=== PATIENT | male | born 1975 | race African-American/Black ===

== ENCOUNTER 2017-09-16 04:11 | Emergency (ER) | payer MEDICARE ==
[~2017-09-16] VITALS: Ht 175.3 cm; Wt 113.4 kg
[~2017-09-16 04:11] MED LIST: PHEN100C4 PO
--- NOTE | 2017-09-16 07:37 | NUR ---
41 Y/O MALE PLACED IN BED 10 C/O SUICIDAL IDEATIONS. PT BEING EVALUATED BY .
[2017-09-16] MEDS ORDERED: OLANZAPINE 5 MG/TAB.RAPDIS PO ONE (08:00)
[2017-09-16] MEDS ORDERED: OLANZAPINE 5 MG/TAB.RAPDIS ONE (08:04)
[2017-09-16 08:07] LABS: BASOPHILS % (AUTO) 0.3 % (0.0-2.0); EOSINOPHILS % (AUTO) 0.3 % (0.0-6.0); HEMATOCRIT 39 % (39-51); HEMOGLOBIN 12.9 g/dL (13.5-17.5); LYMPHOCYTES # (AUTO) 1.6 /CMM (0.8-4.8); LYMPHOCYTES % (AUTO) 20.8 % (20.0-44.0); MEAN CORPUSCULAR HEMOGLOBIN 26 PG (26.0-33.0); MEAN CORPUSCULAR HGB CONC 33 g/dl (31.0-36.0); MEAN CORPUSCULAR VOLUME 80 fL (80-96); MONOCYTES # (AUTO) 0.8 /CMM (0.1-1.30); MONOCYTES % (AUTO) 10.2 % (2.0-12.0); NEUTROPHILS # (AUTO) 5.3 /CMM (1.8-8.9); NEUTROPHILS % (AUTO) 68.4 % (43.0-81.0); PLATELET COUNT (AUTO) 358 /CMM (150-450); RDW COEFFICIENT OF VARIATION 15.3 (11.5-15.0); RED BLOOD CELL COUNT(AUTO) 4.89 MIL/uL (4.5-6.0); WHITE BLOOD COUNT (AUTO) 7.8 K/uL (4.3-11.0)
[2017-09-16 08:30] LABS: ALANINE AMINOTRANSFERASE 53 U/L (12-78); ALBUMIN 4.1 g/dL (3.4-5.0); ALKALINE PHOSPHATASE 80 U/L (46-116); ASPARTATE AMINOTRANSFERASE 38 U/L (15-37); BILIRUBIN,DIRECT 0.3 mg/dL (0.0-0.2); BILIRUBIN,TOTAL 1.2 mg/dL (0.2-1.0); CALCIUM, SERUM 9.3 mg/dL (8.5-10.1); CARBON DIOXIDE 27 mmol/L (21-32); CHLORIDE 103 mmol/L (98-107); CREATININE 1.1 mg/dL (0.6-1.3); GLUCOSE 96 mg/dL (74-106); POTASSIUM 3.3 mmol/L (3.5-5.1); SODIUM SERUM 140 mmol/L (136-145); TOTAL PROTEIN, SERUM 9.2 g/dL (6.4-8.2); UREA NITROGEN, BLOOD 17 mg/dL (7-18)
[2017-09-16 08:31] LABS: ACETAMINOPHEN 0 ug/ml (10-30); ALCOHOL, BLOOD < 3 mg/dL (0-0); SALICYLATE < 0.2 mg/dL (2.8-20.0)
--- NOTE | 2017-09-16 08:34 | NUR ---
Patient is resting comfortably in bed with eyes closed. Easily aroused. VSS
[2017-09-16 08:43] LABS: VALPROIC ACID < 3 ug/mL (50-100)
[2017-09-16 08:55] LABS: APPEARANCE,URINE CLEAR (CLEAR); BILIRUBIN,URINE 1+ (NEGATIVE); BLOOD, URINE TRACE-INTA Ery/uL (NEGATIVE); COLOR,URINE DARK YELLO (YELLOW); KETONES,URINE 1+ (NEGATIVE); LEUKOCYTE ESTERASE ,URINE NEGATIVE (NEGATIVE); NITRITE, URINE NEGATIVE (NEGATIVE); PH,URINE 5.5 (5.0-8.0); PROTEIN,URINE 1+ mg/dl (NEGATIVE); UGLUCOSE NEGATIVE (NEGATIVE)
[2017-09-16] MEDS ORDERED: POTASSIUM CHLORIDE 20 MEQ TAB.PRT.SR PO ONE ×2 (09:00→09:01)
[2017-09-16 09:18] LABS: BACTERIA,URINE FEW /HPF (None Seen)
--- NOTE | 2017-09-16 09:19 | NUR ---
BREAKFAST TRAY PROVIDED
[2017-09-16 09:20] LABS: SQUAMOUS EPITHELIAL CELL,UR FEW /HPF (None Seen); WBC,URINE 0-2 /HPF (0-3)
[2017-09-16 09:21] LABS: MUCUS,URINE Moderate /LPF (None Seen)
[2017-09-16 11:25] VITALS: BP 127/80
--- NOTE | 2017-09-16 11:28 | NUR ---
PT PROVIDED LIST OF RESOURCES TO GET HELP, MENTAL HELP, HOUSING.
--- NOTE | 2017-09-16 11:28 | NUR ---
Patient discharged to home in stable condition. Written and verbal after care instructions given. Patient verbalizes understanding of instruction.
== END 2017-09-16 11:27 | disposition home or self-care (01) ==
LOC: ER 04:15 → EDBD 04:15 → ER 11:27
DX: F20.9 Schizophrenia, unspecified (principal); R45.851 Suicidal ideations; R56.9 Unspecified convulsions; E11.9 Type 2 diabetes mellitus without complications; Z59.0 Homelessness
CPT/HCPCS: 36415; 80048; 80076; 80164; 80305; 80329; 81001; 85025; 99284; A4606; G0480 ×2; 81000-TC; Z7610

== ENCOUNTER 2019-04-15 02:10 | Emergency (ER) | payer MEDICAID, OTHER ==
[~2019-04-15] VITALS: Ht 177.8 cm; Wt 105.7 kg
--- NOTE | 2019-04-15 02:34 | NUR ---
IGOR. C/O "WAS TRYING TO CHECK INTO MENTAL HOSPITAL, +ETOH" -SOB NOTED. PT AOX2-3. VSS.
[2019-04-15] MEDS ORDERED: IV NS 0.9% 1,000 ML BAG IV ONE (03:00)
[2019-04-15 03:01] LABS: BASOPHILS # (AUTO) 0.1 /CMM (0.0-0.2); BASOPHILS % (AUTO) 0.8 % (0.0-2.0); EOSINOPHILS % (AUTO) 1.3 % (0.0-6.0); HEMATOCRIT 39 % (39-51); HEMOGLOBIN 13.4 g/dL (13.5-17.5); LYMPHOCYTES # (AUTO) 2.2 /CMM (0.8-4.8); LYMPHOCYTES % (AUTO) 25.5 % (20.0-44.0); MEAN CORPUSCULAR HGB CONC 34 g/dl (31.0-36.0); MEAN CORPUSCULAR VOLUME 80 fL (80-96); MONOCYTES # (AUTO) 0.9 /CMM (0.1-1.30); MONOCYTES % (AUTO) 10.7 % (2.0-12.0); NEUTROPHILS # (AUTO) 5.2 /CMM (1.8-8.9); NEUTROPHILS % (AUTO) 61.7 % (43.0-81.0); PLATELET COUNT (AUTO) 269 /CMM (150-450); RED BLOOD CELL COUNT(AUTO) 4.93 MIL/uL (4.5-6.0); WHITE BLOOD COUNT (AUTO) 8.5 K/uL (4.3-11.0)
[2019-04-15 03:10] LABS: CALCIUM, SERUM 8.6 mg/dL (8.5-10.1); CARBON DIOXIDE 30 mmol/L (21-32); CHLORIDE 100 mmol/L (98-107); GLUCOSE 132 mg/dL (74-106); SODIUM SERUM 138 mmol/L (136-145); UREA NITROGEN, BLOOD 22 mg/dL (7-18)
[2019-04-15 03:16] LABS: ACETAMINOPHEN 0 ug/ml (10-30); ALANINE AMINOTRANSFERASE 96 U/L (12-78); ALBUMIN 3.9 g/dL (3.4-5.0); ALCOHOL, BLOOD < 3 mg/dL (0-0); ALKALINE PHOSPHATASE 82 U/L (46-116); ASPARTATE AMINOTRANSFERASE 89 U/L (15-37); BILIRUBIN,DIRECT 0.2 mg/dL (0.0-0.2); BILIRUBIN,TOTAL 0.7 mg/dL (0.2-1.0); SALICYLATE 1.8 mg/dL (2.8-20.0); TOTAL PROTEIN, SERUM 8.4 g/dL (6.4-8.2)
[2019-04-15] MEDS ORDERED: POTASSIUM CHLORIDE 20 MEQ TAB.PRT.SR PO ONE ×2 (04:30→04:47)
--- NOTE | 2019-04-15 07:25 | NUR ---
PT ASLEEP ON BED, EASILY AROUSABLE, NOT IN RERSPIRATORY DISTRESS, V/S STABLE, KEPT RESTED AND COMFORTABLE, WILL CONTINUE TO MONITOR.
--- NOTE | 2019-04-15 08:23 | NUR ---
VIRAJ HOSKINS AT BEDSIDE FOR EVAL.
--- NOTE | 2019-04-15 08:33 | NUR ---
Social service consult requested by Dr. Woodson for voluntary psychiatric admission. Pt. is a 43 year old -[place] male who wanted to check in to local voluntary psychiatric facility and was referred to [facility]. GATO met with pt. bedside. Pt. has a sitter bedside. Pt. was asleep and had to be woken up. Pt. is alert and oriented x 3. Pt. appears disheveled. Pt. states he is homeless. Pt. wants to check in voluntary for psychiatric admission.Pt. states he is suicidal and plans to run into traffic or jump off a bridge. Pt. agreed to go voluntarily for psychiatric admission. GATO faxed clinical referral packet to Intake at [facility]. GATO also called Rakel in intake at [facility] and informed her that a referral packet was faxed to her.
--- NOTE | 2019-04-15 09:54 | NUR ---
Second dose of 20 Meq dosage of Potassium was administered to the pt. at 4:47AM per [employer] Dustin.
--- NOTE | 2019-04-15 09:58 | NUR ---
[facility]ATO to send a note stating pt. had a 2nd dose of potassium. GATO faxed note to Rakel at .
--- NOTE | 2019-04-15 10:08 | NUR ---
REPORT GIVEN TO NICOLE BERTRAND OF [facility] FOR [facility].
--- NOTE | 2019-04-15 10:10 | NUR ---
GATO received a call from Rakel at [facility] informing SW pt. is accepted under Dr. Chowdary and nursing report needs to be called to x [phone]. GATO updated pt's RN Dustin in ED with aforementioned information.
--- NOTE | 2019-04-15 11:22 | NUR ---
CALLED [facility]. ETA 30 MIN. TRIP [phone]
[2019-04-15 11:34] VITALS: BP 143/86
--- NOTE | 2019-04-15 11:58 | NUR ---
REPORT GIVEN TO EMT FOR PT TRANSFER TO [facility].
== END 2019-04-15 12:23 ==
LOC: ER 02:12
DX: R45.851 Suicidal ideations (principal); F32.9 Major depressive disorder, single episode, unspecified; R56.9 Unspecified convulsions; E11.9 Type 2 diabetes mellitus without complications; F20.9 Schizophrenia, unspecified; Z88.6 Allergy status to analgesic agent
CPT/HCPCS: 36415; 80048; 80076; 80305; 80307; 80329; 85025; 99285; G0480; J7030

== ENCOUNTER 2020-12-07 01:41 | Emergency (ER) | payer MEDICAID, MEDICARE ==
[~2020-12-07] VITALS: Ht 177.8 cm; Wt 105.7 kg
[2020-12-07 01:46] VITALS: BP 153/75
[2020-12-07] MEDS ORDERED: OLAN5TAB3 PO (01:59)
== END 2020-12-07 02:06 | disposition left against medical advice (07) ==
LOC: ER 01:43
DX: F20.9 Schizophrenia, unspecified (principal); E11.9 Type 2 diabetes mellitus without complications; Z88.8 Allergy status to other drugs, medicaments and biological substances; Z79.899 Other long term (current) drug therapy

== ENCOUNTER 2021-04-06 01:33 | Emergency (ER) | payer MEDICAID, MEDICARE ==
[~2021-04-06] VITALS: Ht 177.8 cm; Wt 79.4 kg
[~2021-04-06 01:33] MED LIST changes: +OLAN5TAB3 PO
[2021-04-06 01:48] VITALS: BP 142/84
[2021-04-06 02:16] LABS: BASOPHILS % (AUTO) 0.4 % (0.0-2.0); CALCIUM, SERUM 8.3 mg/dL (8.5-10.1); CARBON DIOXIDE 28 mmol/L (21-32); CHLORIDE 100 mmol/L (98-107); CREATININE 0.8 mg/dL (0.6-1.3); EOSINOPHILS % (AUTO) 0.9 % (0.0-6.0); GLUCOSE 262 mg/dL (74-106); HEMATOCRIT 37 % (39-51); HEMOGLOBIN 12.3 g/dL (13.5-17.5); LYMPHOCYTES # (AUTO) 1.4 K/uL (0.8-4.8); LYMPHOCYTES % (AUTO) 19.7 % (20.0-44.0); MEAN CORPUSCULAR HGB CONC 34 g/dl (31.0-36.0); MEAN CORPUSCULAR VOLUME 82 fL (80-96); MONOCYTES # (AUTO) 0.7 K/uL (0.1-1.30); MONOCYTES % (AUTO) 9.3 % (2.0-12.0); NEUTROPHILS # (AUTO) 5.1 K/uL (1.8-8.9); NEUTROPHILS % (AUTO) 69.7 % (43.0-81.0); PLATELET COUNT (AUTO) 323 K/uL (150-450); POTASSIUM 3.2 mmol/L (3.5-5.1); RED BLOOD CELL COUNT(AUTO) 4.51 MIL/uL (4.5-6.0); SODIUM SERUM 136 mmol/L (136-145); UREA NITROGEN, BLOOD 9 mg/dL (7-18); WHITE BLOOD COUNT (AUTO) 7.2 K/uL (4.3-11.0)
[2021-04-06 02:30] LABS: ACETAMINOPHEN < 0 ug/ml (10-30); ALANINE AMINOTRANSFERASE 67 U/L (12-78); ALBUMIN 3.6 g/dL (3.4-5.0); ALCOHOL, BLOOD < 3 mg/dL (0-0); ALKALINE PHOSPHATASE 82 U/L (46-116); ASPARTATE AMINOTRANSFERASE 16 U/L (15-37); BILIRUBIN,DIRECT 0.2 mg/dL (0.0-0.2); BILIRUBIN,TOTAL 0.6 mg/dL (0.2-1.0); TOTAL PROTEIN, SERUM 7.6 g/dL (6.4-8.2)
== END 2021-04-06 05:48 | disposition home or self-care (01) ==
LOC: ER 01:36
DX: R46.1 Bizarre personal appearance (principal); R56.9 Unspecified convulsions; Z88.1 Allergy status to other antibiotic agents; Z59.0 Homelessness; Z79.899 Other long term (current) drug therapy
CPT/HCPCS: 36415; 80048-TC; 80076-TC; 85025-TC; G0480

== ENCOUNTER 2021-06-10 23:51 | Emergency (ER) | payer MEDICAID, MEDICARE ==
[~2021-06-10] VITALS: Ht 177.8 cm; Wt 68.0 kg
--- NOTE | 2021-06-11 00:16 | NUR ---
PT AAOX4. BIBRA C/O SI AND HI. WITH PLAN TO LIGHT SELF ON FIRE WITH GAS. PLACED IN GOWN, ON MONITOR, AND PULSE OX. AWAITING ER MD FOR EVAL. SITTER AT BEDSIDE. BELONINGS PLACED IN LOCKER.
--- NOTE | 2021-06-11 00:41 | NUR ---
LAB AT BEDSIDE
[2021-06-11 01:11] LABS: BASOPHILS % (AUTO) 0.3 % (0.0-2.0); EOSINOPHILS % (AUTO) 0.3 % (0.0-6.0); HEMATOCRIT 44 % (39-51); HEMOGLOBIN 14.4 g/dL (13.5-17.5); LYMPHOCYTES # (AUTO) 1.4 K/uL (0.8-4.8); MEAN CORPUSCULAR HGB CONC 33 g/dl (31.0-36.0); MEAN CORPUSCULAR VOLUME 82 fL (80-96); MONOCYTES # (AUTO) 0.6 K/uL (0.1-1.30); MONOCYTES % (AUTO) 5.3 % (2.0-12.0); NEUTROPHILS # (AUTO) 8.9 K/uL (1.8-8.9); NEUTROPHILS % (AUTO) 81.1 % (43.0-81.0); PLATELET COUNT (AUTO) 340 K/uL (150-450); RED BLOOD CELL COUNT(AUTO) 5.33 MIL/uL (4.5-6.0)
[2021-06-11 01:22] LABS: CALCIUM, SERUM 9.9 mg/dL (8.5-10.1); CARBON DIOXIDE 25 mmol/L (21-32); CHLORIDE 97 mmol/L (98-107); CREATININE 0.9 mg/dL (0.6-1.3); GLUCOSE 308 mg/dL (74-106); SODIUM SERUM 134 mmol/L (136-145); UREA NITROGEN, BLOOD 12 mg/dL (7-18)
[2021-06-11 01:22] LABS: BILIRUBIN,URINE NEGATIVE (NEGATIVE); COLOR,URINE YELLOW (YELLOW); LEUKOCYTE ESTERASE ,URINE NEGATIVE (NEGATIVE); NITRITE, URINE NEGATIVE (NEGATIVE); PROTEIN,URINE 30 mg/dl (NEGATIVE); UGLUCOSE >=1000 mg/dL (NEGATIVE); UROBILINOGEN,URINE 0.2 EU/dL (0.2)
[2021-06-11 01:28] LABS: ALANINE AMINOTRANSFERASE 20 U/L (12-78); ALBUMIN 4.6 g/dL (3.4-5.0); ALCOHOL, BLOOD < 3 mg/dL (0-0); ALKALINE PHOSPHATASE 91 U/L (46-116); ASPARTATE AMINOTRANSFERASE 15 U/L (15-37); BILIRUBIN,DIRECT 0.2 mg/dL (0.0-0.2); BILIRUBIN,TOTAL 0.8 mg/dL (0.2-1.0); TOTAL PROTEIN, SERUM 9.4 g/dL (6.4-8.2)
[2021-06-11 01:29] LABS: ACETAMINOPHEN 0 ug/ml (10-30)
[2021-06-11] MEDS ORDERED: POTASSIUM CHLORIDE 20 MEQ TAB.PRT.SR PO ONE ×2 (02:30→02:33)
[2021-06-11] MEDS ORDERED: TDAP [DIPH/PERTUSSIS/TET] 0.5 ML VIAL IM ONE (03:07)
[2021-06-11] MEDS ORDERED: INSULIN REGULAR, HUMAN 100 UNIT/ML 10 ML VIAL ONE (04:41)
--- NOTE | 2021-06-11 04:48 | NUR ---
pt sitting quietly, watching tv. vss
[2021-06-11] MEDS ORDERED: LEVETIRACETAM (250 MG) 250 MG TABLET PO ONE ×2 (04:57→05:00)
[2021-06-11] MEDS ORDERED: INSULIN REGULAR, HUMAN 100 UNIT/ML 10 ML VIAL SQ ONE (05:00)
--- NOTE | 2021-06-11 07:16 | NUR ---
FAXED CLINICALS TO [facility]
--- NOTE | 2021-06-11 08:33 | NUR ---
Patient Tranfers to outside Facility Physician:Dr. Vazquez/Dr. Krishnan number for report [phone] Location:[facility]
--- NOTE | 2021-06-11 08:36 | NUR ---
report given to Joseph Santos for marce.
--- NOTE | 2021-06-11 08:53 | NUR ---
called [facility]. eta 1300.
--- NOTE | 2021-06-11 09:12 | NUR ---
[facility] CALLED ETA 0950 PER BECKA
[2021-06-11 10:00] VITALS: BP 128/77
--- NOTE | 2021-06-11 10:30 | NUR ---
patient picked up by private ambulance in no distress accompanied by 2 emt in no distress, going to [facility].
== END 2021-06-11 10:30 ==
LOC: ER 23:56
DX: R45.851 Suicidal ideations (principal); G40.909 Epilepsy, unspecified, not intractable, without status epilepticus; E87.6 Hypokalemia; Z20.822 Contact with and (suspected) exposure to COVID-19; E11.65 Type 2 diabetes mellitus with hyperglycemia; Z82.49 Family history of ischemic heart disease and other diseases of the circulatory system; Z59.00 Homelessness unspecified; F20.9 Schizophrenia, unspecified
CPT/HCPCS: 36415; 80048; 80076; 80143; 80307; 80320; 81003; 82010; 82962 ×3; 83735; 85025; 87426; 96372; 99285; C9803; J1815; 90715; G0480

== ENCOUNTER 2021-06-25 19:52 | Emergency (ER) | payer MEDICARE, OTHER ==
[~2021-06-25] VITALS: Ht 172.7 cm; Wt 72.6 kg
[2021-06-25 22:43] LABS: BASOPHILS % (AUTO) 0.4 % (0.0-2.0); EOSINOPHILS % (AUTO) 0.8 % (0.0-6.0); HEMATOCRIT 38 % (39-51); HEMOGLOBIN 12.7 g/dL (13.5-17.5); LYMPHOCYTES # (AUTO) 1.3 K/uL (0.8-4.8); LYMPHOCYTES % (AUTO) 17.1 % (20.0-44.0); MEAN CORPUSCULAR HGB CONC 33 g/dl (31.0-36.0); MEAN CORPUSCULAR VOLUME 82 fL (80-96); MONOCYTES # (AUTO) 0.7 K/uL (0.1-1.30); MONOCYTES % (AUTO) 9.6 % (2.0-12.0); NEUTROPHILS # (AUTO) 5.5 K/uL (1.8-8.9); NEUTROPHILS % (AUTO) 72.1 % (43.0-81.0); PLATELET COUNT (AUTO) 337 K/uL (150-450); RED BLOOD CELL COUNT(AUTO) 4.64 MIL/uL (4.5-6.0); WHITE BLOOD COUNT (AUTO) 7.7 K/uL (4.3-11.0)
[2021-06-25 22:48] LABS: BILIRUBIN,URINE NEGATIVE (NEGATIVE); COLOR,URINE YELLOW (YELLOW); LEUKOCYTE ESTERASE ,URINE NEGATIVE (NEGATIVE); NITRITE, URINE NEGATIVE (NEGATIVE); PROTEIN,URINE NEGATIVE (NEGATIVE); UGLUCOSE >=1000 mg/dL (NEGATIVE)
[2021-06-25 22:58] LABS: CALCIUM, SERUM 9.2 mg/dL (8.5-10.1); CARBON DIOXIDE 32 mmol/L (21-32); CHLORIDE 101 mmol/L (98-107); CREATININE 0.7 mg/dL (0.6-1.3); GLUCOSE 178 mg/dL (74-106); POTASSIUM 3.7 mmol/L (3.5-5.1); SODIUM SERUM 139 mmol/L (136-145); UREA NITROGEN, BLOOD 8 mg/dL (7-18)
[2021-06-25 23:06] LABS: BACTERIA,URINE None seen /HPF (None Seen); MUCUS,URINE Few /LPF (None Seen); RBC,URINE 0-2 /HPF (0-2); SQUAMOUS EPITHELIAL CELL,UR Few /HPF (None Seen); WBC,URINE 0-2 /HPF (0-3)
[2021-06-25 23:15] LABS: ALANINE AMINOTRANSFERASE 39 U/L (12-78); ALBUMIN 4.1 g/dL (3.4-5.0); ALKALINE PHOSPHATASE 84 U/L (46-116); ASPARTATE AMINOTRANSFERASE 10 U/L (15-37); BILIRUBIN,DIRECT 0.1 mg/dL (0.0-0.2); BILIRUBIN,TOTAL 0.5 mg/dL (0.2-1.0); TOTAL PROTEIN, SERUM 8.5 g/dL (6.4-8.2)
[2021-06-25 23:17] LABS: ACETAMINOPHEN < 10 ug/ml (10-30); ALCOHOL, BLOOD < 3 mg/dL (0-0)
--- NOTE | 2021-06-26 00:52 | NUR ---
FACESHEET AND CLINICALS FAXED TO [facility].
--- NOTE | 2021-06-26 01:22 | NUR ---
pt sleeping, attached to monitor and pox,vss
--- NOTE | 2021-06-26 02:45 | NUR ---
Patient is resting comfortably in bed with eyes closed. Easily aroused. VSS
--- NOTE | 2021-06-26 03:15 | NUR ---
Patient is resting comfortably in bed with eyes closed. Easily aroused. VSS
--- NOTE | 2021-06-26 04:48 | NUR ---
pt sleeping, breathing evenly and unlabored.vss
--- NOTE | 2021-06-26 05:19 | NUR ---
PT ACCEPTED TO [facility] BY DR LUNDY. # FOR REPORT [phone]
--- NOTE | 2021-06-26 05:31 | NUR ---
CALLED [facility] REGARDING TRANSPORTATION. ref #[id number]
--- NOTE | 2021-06-26 05:46 | NUR ---
PER [facility] ETA FOR [facility] IS 11AM
[2021-06-26 06:00] VITALS: BP 121/75
--- NOTE | 2021-06-26 11:22 | NUR ---
PT ELOPED. NO LONGER AT HOLDING ROOM. PT WAS LAST SEEN AT 0800 WHEN PROVIDED W/ MEAL TRAY.
== END 2021-06-26 11:24 | disposition left against medical advice (07) ==
LOC: ER 19:52
DX: R45.851 Suicidal ideations (principal); F15.10 Other stimulant abuse, uncomplicated; Z59.00 Homelessness unspecified; Z20.822 Contact with and (suspected) exposure to COVID-19; F20.9 Schizophrenia, unspecified; G40.909 Epilepsy, unspecified, not intractable, without status epilepticus; Z79.899 Other long term (current) drug therapy; E11.9 Type 2 diabetes mellitus without complications
CPT/HCPCS: 36415; 80048; 80076; 80143; 80307; 80320; 81001; 85025; 87426; 99285; C9803; G0480